=== PATIENT | female | born 1955 | race Caucasian/White ===

== ENCOUNTER 2016-05-25 16:35 | Emergency (ER) | payer BC ==
--- NOTE | ~2016-05-25 | CT98 ---
[facility] A Service of [facility] RADIOLOGY TEXT RESULTS PATIENT: MARITZA CRUZ LOCATION: SED : 59 UNIT #: [id number] AGE: [address]: JIMBO SPRING PA-C SEX: F ORDER DR: [id number] [address] [address] [id number] E MR#: [id number] Acc #: [id number] NAME: MARITZA CRUZ. : 1955 SEX: F STUDY DATE/TIME: 05/25/2016 17:08 UNIT: SED ROOM: STUDY DESCRIPTION: CT Lumbar Spine Wo Cont Attending Physician: Jimbo Spring Pa-C Ordering Physician: Physician Non-Staff Primary Care Physician: Italo Allison MEDICAL IMAGING REPORT This report is preliminary unless electronic signature is present. EXAM CT abdomen and pelvis without contrast, 05/25/2016 INDICATION Back pain for the past 40 years with new right lower extremity pain today. PROCEDURE Unenhanced CT of the lumbar spine. Comparison MRI from 02/26/2016. This CT exam was performed with one or more of the following radiation dose reduction techniques: automatic exposure control, adjustment of mA and/or kV according to patient size, and iterative reconstruction. FINDINGS Lumbar bodies have normal height. Overall alignment is preserved. No fracture. L1-L2: Mild broad-based posterior bulge. Mild central canal narrowing. No significant neural foraminal narrowing. L2-L3: Circumferential disc bulge. Previous left laminectomy. Mild to moderate central canal narrowing and mild to moderate bilateral neural foraminal narrowing related predominately to mild facet change and foraminal disc bulges. L3-L4: Circumferential disc bulge. Moderate central canal narrowing. There is gdzf-su-pnsebfth bilateral neural foraminal narrowing. L4-L5: Circumferential disc bulge, eccentrically prominent in the right lateral and foraminal regions. There is significant central canal narrowing. It looks very similar to the comparison MRI. There is moderate bilateral neural foraminal narrowing. [facility] A Service [facility] RADIOLOGY TEXT RESULTS PATIENT: MARITZA CRUZ LOCATION: [facility] [place] : 59 UNIT #: [id number] AGE: [address]: JIMBO SPRING PA-C SEX: F ORDER DR: L5-S1: Broad-based posterior disc bulge. Moderate central canal narrowing. There is mild left and moderate right neural foraminal narrowing. There is a 2.1 cm benign left adrenal adenoma. IMPRESSION No acute findings. No appreciable change from MRI on 02/26/2016. Dictated by... Red Gómez M.D. THIS IS AN ELECTRONICALLY VERIFIED REPORT Red Gómez M.D. at 05/27/2016 6:59 AM DUSTIN/kaitlyn TD: 05/25/2016 23:49 JOB #: [id number] MEDICAL IMAGING REPORT
[~2016-05-25 16:35] MED LIST: B/P MED; FLAGYL PO; FLOMAX0.4 M1 PO; LORTAB 10-3251 EACH; LORTAB 10-5001 EACH; MOTRIN600 MG PO; NITROSTAT0.4 MG SL; NO MEDICATIONS; PERCOCET 7.5-31 EACH PO; PREDNISONE PO; VOLTAREN75 MG PO; ZOFRAN ODT4 MG PO
[2016-05-25 17:51] LABS: URINE SOURCE CLEAN CATCH
[2016-05-25 17:54] LABS: MICRO INDICATED? YES; URINE APPEARANCE HAZY; URINE BILIRUBIN NEG (NEG); URINE BLOOD 1+ (NEG); URINE COLOR YELLOW; URINE GLUCOSE NEG (NORM); URINE KETONE NEG (NEG); URINE LEUKOCYTE ESTERASE TRACE (NEG); URINE NITRATE NEG (NEG); URINE PROTEIN NEG (NEG); URINE SPECIFIC GRAVITY 1.025 (1.003-1.035); URINE UROBILINOGEN 0.2 MG/DL (NORM)
[2016-05-25 18:03] LABS: CULTURE INDICATED? NO; URINE BACTERIA NEG (NEG); URINE CRYSTALS URIC ACID /[HPF]; URINE SQUAMOUS EPITHELIAL CELL MODERATE /[HPF]; URINE WBC 0-2 /[HPF] (0-5)
== END 2016-05-25 19:01 | disposition home or self-care (01) ==
LOC: SED 16:35
PROVIDERS: Physician Assistant
DX: M54.16 Radiculopathy, lumbar region (principal); Z88.0 Allergy status to penicillin
CPT/HCPCS: 72131; 81003; 96372; 99284; J1100; J1170

== ENCOUNTER → 2016-06-24 | Outpatient (CLI) | payer BC ==
--- NOTE | ~2016-06-24 | ST ---
Unit #: [id number] #: [id number] Patient: MARITZA CRUZ [id number] [address] [address] [id number] O MR#: [id number] NAME: MARITZA CRUZ. : 1955 SEX: F STUDY DATE/TIME: 06/24/2016 UNIT: [facility] ROOM: STUDY DESCRIPTION: Cardiac stress test. Attending Physician: Mo Barth M.D. Referring Physician: Mo Barth M.D. Primary Care Physician: Italo Casper M.D. CARDIOLOGY REPORT EXAM Cardiac stress test. PROCEDURE The patient's baseline heart rate was 60 beats per minute, blood pressure 153/89. The patient's baseline EKG shows sinus rhythm with nonspecific ST and T changes. During peak Lexiscan infusion the patient's heart rate was 77 beats per minute, blood pressure 148/81. During Lexiscan infusion recovery no further ST and T changes. The patient received 10.38 mCi of Cardiolite at rest and 30.7 mCi of Cardiolite during stress. Both sets of images were compared. The patient shows fairly uniform uptake of radiotracer. No defect was noted. The patient also has gated SPECT scan done which showed normal left ventricular size and function. No wall motion abnormality detected. Ejection fraction 68%. INTERPRETATION 1. EKG part of the test is negative for Lexiscan induced ischemia. 2. Nuclear part of the test negative for myocardial ischemia. 3. Gated SPECT scan showed normal left ventricular size and function. 1. Dictated by... Manish Cobb/gallito TD: 06/25/2016 09:30 JOB #: [id number] CC: Mo Barth M.D. CARDIOLOGY REPORT Page 1 of 1 X Alex Franklin MD CARDIOLOGY REPORT
--- NOTE | ~2016-06-24 | TH ---
Unit #: [id number] #: [id number] Patient: MARITZA CRUZ [id number] [address] [address] [id number] O MR#: [id number] NAME: MARITZA CRUZ : 1955 SEX: F STUDY DATE/TIME: 06/24/2016 UNIT: [facility] ROOM: STUDY DESCRIPTION: Cardiolite imaging Attending Physician: Mo Barth M.D. Referring Physician: Mo Barth M.D. Primary Care Physician: Italo Casper M.D. CARDIOLOGY REPORT EXAM Cardiolite imaging. Results of study included in EKG portion report. Dictated by... Alex Franklin M.D. NKS/gallito TD: 06/25/2016 09:35 JOB #: [id number] CARDIOLOGY REPORT Page 1 of 1 X Alex Franklin MD CARDIOLOGY REPORT
== END | disposition home or self-care (01) ==
LOC: CNUC 08:09
DX: R94.31 Abnormal electrocardiogram [ECG] [EKG] (principal)
CPT/HCPCS: 78452; 93017; 93306; A9500; J2785

== ENCOUNTER → 2016-07-21 | Outpatient (CLI) | payer BC ==
[2016-07-21 11:30] LABS: BUN/CREATININE RATIO 26.25; CALCIUM SERUM 9.7 mg/dL (8.4-10.2); CREATININE SERUM 0.8 mg/dL (0.6-1.4); GLOM FILT RATE Estimated 81.3 mL/min (>60); MAGNESIUM 2.2 mg/dL (1.6-3.0); POTASSIUM 4.2 mmol/L (3.5-5.1)
== END | disposition home or self-care (01) ==
LOC: CLAB 10:24
DX: R93.1 Abnormal findings on diagnostic imaging of heart and coronary circulation (principal)
CPT/HCPCS: 36415; 80048; 83735

== ENCOUNTER → 2016-10-03 | Outpatient (CLI) | payer BC ==
--- NOTE | ~2016-10-03 | CT57 ---
[facility] A Service [facility] RADIOLOGY TEXT RESULTS PATIENT: MARITZA CRUZ LOCATION: [facility] : 59 UNIT #: [id number] AGE: [address]: MELISSA INIGUEZ SEX: F ORDER DR: [id number] [address] [address] [id number] O MR#: [id number] Acc #: [id number] NAME: MARITZA CRUZ : 1955 SEX: F STUDY DATE/TIME: 10/03/2016 8:17 UNIT: [facility] ROOM: STUDY DESCRIPTION: CT Chest Wo Cont Attending Physician: Melissa Iniguez Aprn Referring Physician: Melissa Iniguez Aprn Primary Care Physician: Italo Casper M.D. MEDICAL IMAGING REPORT This report is preliminary unless electronic signature is present. EXAM CT of the chest without contrast INDICATION Followup pulmonary nodules. TECHNIQUE CT of the chest performed without contrast. Coronal and sagittal reformatted images were obtained. This CT exam was performed with one or more of the following radiation dose reduction techniques: Automatic exposure control, adjustment of mA and/or kV according to patient size, and iterative reconstruction. COMPARISON Comparison with 11/27/2011. FINDINGS Stable chronic granulomatous calcification and nodularity in the right upper lobe. There is no suspicious pulmonary nodule. No new nodule. No lymphadenopathy or pleural effusion. Limited imaging of the upper abdomen shows a stable left adrenal gland adenoma. The bone windows are unremarkable. IMPRESSION Stable chronic the nodularity and granulomas within the right upper lobe. No suspicious pulmonary nodule. Dictated by... Jacob Ovalle M.D. THIS IS AN ELECTRONICALLY VERIFIED REPORT [facility] A Service [facility] RADIOLOGY TEXT RESULTS PATIENT: MARITZA CRUZ LOCATION: [facility] : 59 UNIT #: [id number] AGE: [address]: MELISSA INIGUEZ SEX: F ORDER DR: Jacob Ovalle M.D. at 10/03/2016 3:51 PM ARS/aa TD: 10/03/2016 13:33 JOB #: [id number] MEDICAL IMAGING REPORT Page 1 of 1
== END | disposition home or self-care (01) ==
LOC: SCT 08:08
DX: J98.4 Other disorders of lung (principal); J84.10 Pulmonary fibrosis, unspecified; R91.1 Solitary pulmonary nodule
CPT/HCPCS: 71250